=== PATIENT | female | born 1975 | race African-American/Black ===

== ENCOUNTER → 2019-07-01 | Outpatient (CLI) | payer MEDICAID ==
[2019-07-01 10:06] LABS: CHOLESTEROL 180.31 mg/dL (0-200); TRIGLYCERIDES 65 mg/dL (<150)
[2019-07-01 10:17] LABS: DIRECT LDL 136 mg/dL (<100)
== END ==
LOC: OD 08:19
PROVIDERS: ATTEND Physician Assistant
DX: I10 Essential (primary) hypertension (principal); E78.5 Hyperlipidemia, unspecified
CPT/HCPCS: 36415; 80061